=== PATIENT | male | born 1955 | race Caucasian/White ===

== ENCOUNTER 2018-12-04 02:12 | Emergency (ER) | payer OTHER ==
[~2018-12-04] VITALS: Ht 175.3 cm; Wt 95.4 kg
[2018-12-04] MEDS ORDERED: LIPITOR10 M1 PO (02:56)
[2018-12-04] MEDS ORDERED: PROSCAR5 MG PO (02:56)
[2018-12-04] MEDS ORDERED: FISH OIL1 CAP (02:57)
[2018-12-04] MEDS ORDERED: [UNRECOGNIZED DRUG - OTHER] (02:57)
[2018-12-04 02:59] LABS: HEMATOCRIT 40.8 % (39.0-50.0); HEMOGLOBIN 14.1 g/dl (14.0-18.0); IMMATURE GRANULOCYTES 0.4 % (0.0-5.0); MEAN CORPUSCULAR HGB 30.1 pG CALC (26.0-32.0); MEAN CORPUSCULAR HGB CONC 34.6 g/L CALC (32.0-36.0); NEUT# 7.66 thou/uL (1.82-7.42); RED BLOOD COUNT 4.69 mill/uL (4.70-6.10); RED CELL DISTRI WIDTH 13.3 % (11.5-15.5)
[2018-12-04 03:10] LABS: ALBUMIN 4.8 g/dL (3.2-5.0); ALKALINE PHOSPHATASE 98 u/l (38-126); AMYLASE 63 u/l (30-110); ANION GAP 16 (6-22 (CALC)); BILIRUBIN, TOTAL 0.7 mg/dL (0.0-1.4); BUN 16 mg/dL (8-23); BUN/CREATININE RATIO 17 (12-20 (CALC)); CARBON DIOXIDE 25 mmol/l (22-30); CHLORIDE 103 mmol/l (95-108); CREATININE 0.9 mg/dL (0.7-1.3); GFR > 60 ML/MIN (>=60 (CALC)); GFR FOR AFR.AMER. > 60 ML/MIN (>=60 (CALC)); LIPASE 72 u/l (23-300); POTASSIUM 4.4 mmol/l (3.5-5.1); SGOT/AST 27 u/l (19-48); SODIUM 140 mmol/l (137-146); TOTAL PROTEIN 7.7 g/dL (6.3-8.2)
[2018-12-04] MEDS ORDERED: PHENERGAN25 MG RE (04:25)
[2018-12-04] MEDS ORDERED: LORTAB 5/3255 MG PO (04:25)
[2018-12-04 04:30] VITALS: BP 176/84
== END 2018-12-04 04:30 | disposition home or self-care (01) | DRG 446 ==
LOC: ED 02:12
PROVIDERS: Family Medicine
DX: K81.0 Acute cholecystitis (principal)